=== PATIENT | female | born 1955 | race Two or more races ===

== ENCOUNTER 2018-01-31 21:17 | Emergency (ER) | payer OTHER ==
[~2018-01-31] VITALS: Ht 162.6 cm; Wt 102.1 kg
[~2018-01-31 21:17] MED LIST: HYDROCHLOROTHIA25 MG; LISINOPRIL10 MG; METFORMIN HCL500 MG; PENTOXIFYLLINE400 MG; SYNTHROID50 MCG
[2018-01-31] MEDS ORDERED: TESSALON PERLE100 MG PO (22:48)
[2018-01-31] MEDS ORDERED: TUSSI PRES-B L120 M1 PO (22:48)
[2018-01-31] MEDS ORDERED: LEVAQUIN500 MG PO (22:48)
== END 2018-01-31 23:52 | disposition home or self-care (01) ==
LOC: ER 21:17
DX: B34.9 Viral infection, unspecified (principal)

== ENCOUNTER 2022-07-19 19:36 | Emergency (ER) | payer OTHER ==
[~2022-07-19] VITALS: Ht 154.9 cm; Wt 89.8 kg
[~2022-07-19 19:36] MED LIST changes: +ATORVASTATIN CA20 MG PO; +COZAAR100 MG PO; +GABAPENTIN300 M2 PO; +LEVAQUIN500 MG PO; +MEDROLPACK PO; +PROTONIX20 MG PO; +RESTORIL30 MG PO; +TESSALON PERLE100 MG PO; +TUSSI PRES-B L120 M1 PO; +ULTRACET PO
== END 2022-07-19 22:05 | disposition home or self-care (01) ==
LOC: ER 19:36
DX: M25.561 Pain in right knee (principal); Z88.0 Allergy status to penicillin; Z88.6 Allergy status to analgesic agent; Z92.29 Personal history of other drug therapy; Z79.84 Long term (current) use of oral hypoglycemic drugs